=== PATIENT | female | born 1930 | race Caucasian/White ===

== ENCOUNTER 2017-09-26 18:10 | Emergency (ER) | payer MEDICARE ==
[2017-09-26 20:09] LABS: ABS Basophils 0 10^3/ul (0-0.2); ABS Eosinophils 0.1 10^3/ul (0-0.6); ABS Lymphocytes 1.5 10^3/ul (1.0-4.8); ABS Monocytes 0.8 10^3/ul (0-0.8); ABS Neutrophils 4.6 10^3/ul (1.5-7.7); ABS Nucleated RBC 0 10^3/ul; Eosinophil % 1.2 % (0-6); Hematocrit 37 % (35-47); Hemoglobin 12.9 g/dl (12.0-16.0); Mean Corpuscular HGB Conc 35 g/dl (31-36); Mean Corpuscular Hemoglobin 33 pg (27-31); Mean Corpuscular Volume 95 fL (80-97); Mean Platelet Volume 8.1 um3 (7.4-10.4); Nucleated Red Blood Cells % 0.1; Platelet Count 221 10^3/ul (150-450); Red Blood Count 3.86 10^6/ul (4.00-5.40); Red Cell Distribution Width 15 % (10.5-15)
[2017-09-26 20:17] LABS: INR 0.93 (0.77-1.02)
--- NOTE | 2017-09-26 20:33 | RAD ---
INDICATION: Shortness of breath. COMPARISON: None. TECHNIQUE: Single AP portable view of the chest was obtained. FINDINGS: Image quality is compromised due to the relative inferiority of a portable chest x-ray. The heart and mediastinum exhibit normal size and contour. There is mild calcified atherosclerosis overlying the arch of the aorta. The lungs are grossly clear. There is no evidence of a large pleural effusion. A unipolar right shoulder prosthesis is noted. Advanced degenerative changes are noted at the left shoulder. IMPRESSION: No radiographic evidence for acute cardiopulmonary abnormality on this portable chest x-ray.
[2017-09-26 22:01] LABS: Urine Appearance Cloudy; Urine Blood Negative (Negative); Urine Color Yellow; Urine Ketones 1+ (Negative); Urine Protein Negative (Negative); Urine Specific Gravity 1.017 (1.010-1.030); Urine Urobilinogen Negative (Negative)
--- NOTE | 2017-09-26 22:20 | RAD ---
INDICATION: Altered mental status COMPARISON: None. TECHNIQUE: Contiguous axial sections of the brain were obtained from the skull base to the vertex without contrast. FINDINGS: The ventricles, cisterns and sulci exhibit mild symmetrical involutional changes.. There is mild periventricular and subcortical white matter hypoattenuation most consistent with mild chronic microvascular disease. The mejia-white matter differentiation is adequately maintained and there is no sulcal effacement. No significant focal abnormality or mass effect is present. There is no evidence for intracranial hemorrhage. No significant focal osseous abnormality is present. There is fluid in the dependent maxillary sinuses bilaterally. There is layering fluid in the right sphenoid sinus. The ethmoid air cells and frontal sinuses are adequately aerated. The mastoid air cells are well aerated bilaterally. IMPRESSION: 1. Age-appropriate chronic findings as described above without noncontrast CT apparent acute intracranial abnormality. 2. Paranasal sinusitis with multiple fluid levels.
[2017-09-26] MEDS ORDERED: Ciprofloxacin TAB* 500 MG PO ONE (22:49)
[2017-09-27 01:15] VITALS: BP 122/63
--- NOTE | 2017-09-27 19:47 | ED ---
William Khan Tariq, scribed for Albino Alejo MD on 09/26/17 at 1918 . Shortness of Breath - HPI Summary HPI Summary: A 87 y/o female NICK presents to the ED c/o SOB. According to the pt, she woke up from sleep struggling for breathe. She stated that the SOB lasted for a short period of time, minutes, possibly less. After she was brought into the ambulance, Sx alleviated. She doesn't think the EMS gave her anything. Currently , pt feels fine and has no pain. Pt denies headache, N/V, and chills. As per triage, "shortness of breath that started this afternoon per the daughter. EMS states that once she got in the rig she had decreased symptoms without intervention". - History of Current Complaint Chief Complaint: EDShortnessOfBreath Time Seen by Provider: 09/26/17 19:13 Hx Obtained From: Patient Onset/Duration: Sudden Onset, Lasting Minutes - Possibly less Current Severity: None Dyspnea At: Rest - During sleep, currently fine. Aggrevating Factors: Nothing Alleviating Factors: Other - Once brought in EMS, Sx alleviated. - Allergy/Home Medications Allergies/Adverse Reactions: Allergies Allergy/AdvReac Type Severity Reaction Status Date / Time No Known Allergies Allergy Verified 09/26/17 18:16 Home Medications: Home Medications Furosemide TAB* [Lasix TAB*] 40 mg PO DAILY 09/26/17 [History Confirmed 09/26/17 ] Gabapentin CAP(*) [Neurontin 300 CAP(*)] 600 mg PO TID 09/26/17 [History Confirmed 09/26/17] Rdxdw-1-Bsha Ethyl Esters (NF) [Lovaza (NF)] 1 cap PO BID 09/26/17 [History Confirmed 09/26/17] Primidone TAB(*) [Mysoline TAB(*)] 75 mg PO BEDTIME 09/26/17 [History Confirmed 09/26/17] Spironolactone TAB* [Aldactone TAB*] 25 mg PO DAILY 09/26/17 [History Confirmed 09/26/17] Tramadol HCl/Acetaminophen [Ultracet] 1 - 2 tab PO Q4HR PRN 09/26/17 [History Confirmed 09/26/17] PMH/Surg Hx/FS Hx/Imm Hx Endocrine/Hematology History: Denies: Hx Diabetes Cardiovascular History: Denies: Hx Hypertension Infectious Disease History: No Infectious Disease History: Denies: Traveled Outside the [place] in Last 30 Days - Family History Known Family History: Negative: Hypertension - Social History Alcohol Use: None Substance Use Type: Reports: None Smoking Status (MU): Never Smoked Tobacco Review of Systems Negative: Fever Positive: Shortness Of Breath Negative: Vomiting, Nausea Negative: Headache All Other Systems Reviewed And Are Negative: Yes Physical Exam - Summary Physical Exam Summary: GENERAL: Patient is a well developed and nourished female who is lying comfortable in the stretcher. Patient is not in any acute respiratory distress. HEAD AND FACE: Normocephalic EYES: PERRLA, EOMI x 2. EARS: Hearing grossly intact. MOUTH: Oropharynx within normal limits. NECK: Supple, trachea is midline, no adenopathy, no JVD, no carotid bruit. CHEST: Symmetric, no tenderness at palpation LUNGS: Clear to auscultation bilaterally. No wheezing or crackles. CVS: Regular rate and rhythm, S1 and S2 present, no murmurs or gallops appreciated. ABDOMEN: Soft, non-tender. Bowel sounds are normal. No abdominal abnormal pulsations. EXTREMITIES: Bilateral lower extremity edema, 2+ chronic NEURO: Alert and oriented x 3. No acute neurological deficits. Speech is normal and follows commands. SKIN: Dry and warm Neuro exam extended: Cranial nerves II-XII grossly intact, no dysmetria finger to nose, nml heel to villar GCS: 15 Triage Information Reviewed: Yes Vital Signs On Initial Exam: Initial Vitals Pulse Resp Pulse Ox 60 29 97 09/26/17 18:19 09/26/17 18:19 09/26/17 18:19 Vital Signs Reviewed: Yes Diagnostics - Vital Signs Vital Signs Temp Pulse Resp BP Pulse Ox 09/26/17 18:50 60 21 124/63 98 09/26/17 18:22 98.0 F 60 26 138/66 98 09/26/17 18:20 58 22 138/66 99 09/26/17 18:19 60 29 97 - Laboratory Result Diagrams: 09/26/17 20:01 09/26/17 20:01 Lab Statement: Any lab studies that have been ordered have been reviewed, and results considered in the medical decision making process. - Radiology CXR Radiology Interpretation Completed By: Radiologist - No radiographic evidence for acute cardiopulmonary abnormality on this portable chest x-ray. ED PHYSICIAN REVIEWED THIS RADIOLOGY REPORT. - CT BRAIN CT CT Interpretation Completed By: Radiologist - 1. Age-appropriate chronic findings as described above without noncontrast CT apparent acute intracranial abnormality. 2. Paranasal sinusitis with multiple fluid levels. ED PHYSICIAN REVIEWED THIS RADIOLOGY REPORT. - EKG 1945 Cardiac Rate: NL - 64 BPM EKG Rhythm: Sinus Rhythm EKG Interpretation: PREMATURE ATRIAL COMPLEX Re-Evaluation - Re-Evaluation First Eval Re-Evaluation Time: 22:54 Change: Improved Comment: Pt wants to go home. Family verbalized pt has intermittent confusion. Dr. 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 During investigation, family expressed concerned for intermittent confusion. We did a CAT scan of head which revealed nothing acute. UA shows UTI. Labs are otherwise unremarkable. Discussed results with patient and offered admission. Pt became upset and wants to go home. Patient is awake, alert and oriented. Patient will be discharged with a diagnosis of UTI and SOB. Patient stated that she has an upcoming appointment with Dr. Prescott. - Diagnoses Provider Diagnoses: SOB (shortness of breath), UTI (urinary tract infection) Discharge - Sign-Out/Discharge Documenting (check all that apply): Discharge/Admit/Transfer - Discharge - Discharge Plan Condition: Stable Disposition: HOME Prescriptions: Ciprofloxacin HCl [Cipro] 500 mg PO BID 7 Days #14 tablet Patient Education Materials: Urinary Tract Infection in Women (ED), Shortness of Breath (ED) Referrals: Stephane Mello [Primary Care Provider] - Additional Instructions: RETURN TO ED FOR ANY NEW OR WORSENING SYMPTOMS The documentation as recorded by the William lombardo Tariq accurately reflects the service I personally performed and the decisions made by me, Albino Alejo MD.
== END 2017-09-27 01:14 | disposition home or self-care (01) ==
LOC: ED 18:10
DX: R06.02 Shortness of breath (principal); N39.0 Urinary tract infection, site not specified; I49.3 Ventricular premature depolarization; J32.9 Chronic sinusitis, unspecified
CPT/HCPCS: 36415; 70450; 71045; 80053; 81003; 81015; 83605; 83880; 84484; 85025; 85610; 85730; 87086; 93005; 99283; A9270-GY